=== PATIENT | male | born 1995 | race Caucasian/White ===

== ENCOUNTER 2024-01-29 17:51 | Inpatient (IN) | payer MEDICAID, OTHER ==
--- NOTE | 2024-01-29 19:42 | ED ---
General Adult HPI - General Chief complaint: Psychiatric Symptoms Stated complaint: Petition Time Seen by Provider: 01/29/24 19:11 Source: patient Mode of arrival: ambulatory Limitations: no limitations - History of Present Illness Initial comments: 28-year-old male presenting to the ED with complaints of suicidal ideation. Patient reports earlier today was on a Zoom call with his counselor. Patient reports some increased anxiety and depression reports that he is having an existential crisis. Patient reports that while he was on the Zoom call with his counselor he reported that he knew how he was going to . Patient states that he was given from stress. Patient reports during the Zoom interview he waved around a "fake" gun and therefore was brought to this facility for further evaluation. Currently denies homicidal or suicidal ideations. Denies auditory or visual hallucinations. At this time denies medical complaints. No chest pain, shortness of breath, abdominal pain, nausea, vomiting, changes in bowel or bladder habits, fever, chills, cough, congestion, sore throat. No other complaints at this time. - Related Data Home Medications Medication Instructions Recorded Confirmed OLANZapine 5 mg PO HS 01/29/24 01/29/24 Venlafaxine HCl [Effexor XR] 150 mg PO DAILY 01/29/24 01/29/24 busPIRone HCl [Buspar] 20 mg PO BID 01/29/24 01/29/24 hydrOXYzine pamoate [Vistaril] 50 mg PO BID PRN 01/29/24 01/29/24 Allergies Allergy/AdvReac Type Severity Reaction Status Date / Time No Known Allergies Allergy Verified 01/29/24 20:31 Review of Systems ROS Statement: Those systems with pertinent positive or pertinent negative responses have been documented in the HPI. ROS Other: All systems not noted in ROS Statement are negative. Past Medical History Past Medical History: No Reported History History of Any Multi-Drug Resistant Organisms: None Reported Past Surgical History: No Surgical Hx Reported Past Psychological History: Depression Smoking Status: Never smoker Past Alcohol Use History: Rare Past Drug Use History: Marijuana General Exam Limitations: no limitations General appearance: alert, in no apparent distress Head exam: Present: atraumatic, normocephalic Eye exam: Present: normal appearance Neck exam: Present: normal inspection Respiratory exam: Present: normal lung sounds bilaterally Cardiovascular Exam: Present: regular rate, normal rhythm GI/Abdominal exam: Present: soft Neurological exam: Present: alert, oriented X3 Skin exam: Present: warm, dry Course Vital Signs 01/29/24 19:12 Temperature 98.3 F Pulse Rate 104 H Respiratory 18 Rate Blood Pressure 130/96 O2 Sat by Pulse 95 Oximetry Medical Decision Making - Medical Decision Making Was pt. sent in by a medical professional or institution (, PA, COUNTER HOP, urgent care, hospital, or alf...) When possible be specific @ -No Did you speak to anyone other than the patient for history (EMS, parent, family, police, friend...)? What history was obtained from this source @ -No Did you review nursing and triage notes (agree or disagree)? Why? @ -I reviewed and agree with nursing and triage notes Were old charts reviewed (outside hosp., previous admission, EMS record, old EKG, old radiological studies, urgent care reports/EKG's, alf records)? Report findings @ -No old charts were reviewed Differential Diagnosis (chest pain, altered mental status, abdominal pain women, abdominal pain men, vaginal bleeding, weakness, fever, dyspnea, syncope, headache, dizziness, GI bleed, back pain, seizure, CVA, palpatations, mental health, musculoskeletal)? @ -Differential Mental Health Depression, anxiety, bipolar, psychosis, schizophrenia, borderline personality, situational depression, adjustment disorder, behavioral disorder, brain tumor, malingering, substance abuse, encephalopathy, medication reaction, dementia, hypothyroidism, degenerative neurologic disorder, lupus.... This is not meant to be all-inclusive list EKG interpreted by me (3pts min.). @ -None X-rays interpreted by me (1pt min.). @ -None done CT interpreted by me (1pt min.). @ -None done U/S interpreted by me (1pt. min.). @ -None done What testing was considered but not performed or refused? (CT, X-rays, U/S, l abs)? Why? @ -None What meds were considered but not given or refused? Why? @ -None Did you discuss the management of the patient with other professionals (professionals i.e. , [facility], COUNTER HOP, lab, RT, psych nurse, rn social work, hammer operator, teacher, chief science officer, counter caser)? Give summary @ -Discussed the case with Sydnee LANDRY of EPS, patient will require inpatient admission. Was smoking cessation discussed for >3mins.? @ -No Was critical care preformed (if so, how long)? @ -No Were there social determinants of health that impacted care today? How? (Homelessness, low income, unemployed, alcoholism, drug addiction, transportation, low edu. Level, literacy, decrease access to med. care, [facility], rehab)? @ -No Was there de-escalation of care discussed even if they declined (Discuss DNR or withdrawal of care, Hospice)? DNR status @ -No What co-morbidities impacted this encounter? (DM, HTN, Smoking, COPD, CAD, Cancer, CVA, ARF, Chemo, Hep., AIDS, mental health diagnosis, sleep apnea, morbid obesity)? @ -Anxiety/Depression Was patient admitted / discharged? Hospital course, mention meds given and route, prescriptions, significant lab abnormalities, going to OR and other pertinent info. @ -Admission 28-year-old male presenting to the ED with complaints of increased anxiety, depression and suicidal ideation. After evaluation by psychiatry, feel patient needs inpatient admission. Patient will be admitted at this time. He has no medical complaints at this time. Undiagnosed new problem with uncertain prognosis? @ -No Drug Therapy requiring intensive monitoring for toxicity (Heparin, Nitro, Insulin, Cardizem)? @ -No Were any procedures done? @ -No Diagnosis/symptom? @ -Anxiety, depression, suicidal ideation Acute, or Chronic, or Acute on Chronic? @ -Acute Uncomplicated (without systemic symptoms) or Complicated (systemic symptoms)? @ -Uncomplicated Side effects of treatment? @ -No Exacerbation, Progression, or Severe Exacerbation? @ -No Poses a threat to life or bodily function? How? (Chest pain, [place], [place], pneumonia, PE, COPD, DKA, ARF, appy, cholecystitis, CVA, Diverticulitis, Homicidal, Suicidal, threat to staff... and all critical care pts) @ -Possibly - Lab Data Lab Results 01/29/24 01/30/24 Range/Units 19:46 00:03 Urine Opiates Screen Not Detected (NotDetected) Ur Oxycodone Screen Not Detected (NotDetected) Urine Methadone Screen Not Detected (NotDetected) Ur Barbiturates Screen Not Detected (NotDetected) U Tricyclic Antidepress Not Detected (NotDetected) Ur Phencyclidine Scrn Not Detected (NotDetected) Ur Amphetamines Screen Not Detected (NotDetected) U Methamphetamines Scrn Not Detected (NotDetected) U Benzodiazepines Scrn Not Detected (NotDetected) Urine Cocaine Screen Not Detected (NotDetected) U Marijuana (THC) Screen Not Detected (NotDetected) Influenza Type A (PCR) Not Detected (Not Detectd) Influenza Type B (PCR) Not Detected (Not Detectd) RSV (PCR) Not Detected (Not Detectd) SARS-CoV-2 (PCR) Not Detected (Not Detectd) Disposition Clinical Impression: Suicidal ideation Disposition: ADMITTED IP TO THIS HOSP Condition: Good Time of Disposition: 00:20
[2024-01-29 20:19] LABS: Amphetamine Screen,Urine Not Detected (NotDetected); Barbiturate Screen,Urine Not Detected (NotDetected); Benzodiazepines Screen,Urine Not Detected (NotDetected); Cocaine Screen,Urine Not Detected (NotDetected); Methadone Screen, Urine Not Detected (NotDetected); Opiate Screen,Urine Not Detected (NotDetected); Oxycodone Screen, Urine Not Detected (NotDetected); Phencyclidine Screen,Urine Not Detected (NotDetected); Tricyclic Antidepressant,Urine Not Detected (NotDetected); Urn Cannabinoid Scrn Not Detected (NotDetected)
[2024-01-30] MEDS ORDERED: MAGNESIUM HYDROXIDE 2,400 MG/30 ML CUP PO PRN (00:52)
[2024-01-30] MEDS ORDERED: ACETAMINOPHEN TAB 325 MG TAB PO PRN (00:52)
[2024-01-30] MEDS ORDERED: HALOPERIDOL LACTATE 5 MG/ML 1 ML VIAL IM PRN (00:52)
[2024-01-30] MEDS ORDERED: LORazepam 2 MG/ML INJ IM PRN (00:52)
[2024-01-30 03:50] LABS: Appearance,Urine Clear (Clear); Bilirubin,Urine Negative (Negative); Blood,Urine Negative (Negative); Color,Urine Yellow; Glucose,Urine (UA) Negative (Negative); Ketones,Urine Negative (Negative); Leukocyte Esterase,Urine Negative (Negative); Nitrite,Urine Negative (Negative); PH, Urine 5.5 (5.0-8.0); Protein,Urine Negative (Negative); Specific Gravity,Urine 1.026 (1.001-1.035); Urobilinogen,Urine <2.0 mg/dL (<2.0)
[2024-01-30] MEDS: LORazepam 1 MG TAB PO PRN (03:55)
[2024-01-30] MEDS: IBUPROFEN 600 MG TAB PO PRN (03:55)
[2024-01-30 07:56] LABS: Basophils % (A) 0 %; Eosinophils # (A) 0.1 k/uL (0-0.7); Eosinophils % (A) 1 %; HCT 48.8 % (39.0-53.0); HGB 16.2 gm/dL (13.0-17.5); Lymphocytes # (A) 2.4 k/uL (1.0-4.8); Lymphocytes % (A) 23 %; MCH 29.8 pg (25.0-35.0); MCHC 33.2 g/dL (31.0-37.0); MCV 89.8 fL (80.0-100.0); Mean Platelet Volume 7.3; Monocytes # (A) 0.4 k/uL (0-1.0); Monocytes % (A) 4 %; Neutrophils # (A) 7.7 k/uL (1.3-7.7); Neutrophils % (A) 71 %; Platelet Count 330 k/uL (150-450); RBC 5.44 m/uL (4.30-5.90); RDW 13.1 % (11.5-15.5); WBC 10.8 k/uL (3.8-10.6)
[2024-01-30 08:29] LABS: ALT 30 U/L (4-49); AST 46 U/L (17-59); African American GFR (CKD) >90 (>60 ml/min/1.73 sqM); Albumin 4.5 g/dL (3.5-5.0); Alkaline Phosphatase 85 U/L (38-126); Anion Gap 11 mmol/L; Bilirubin, Delta 0.3 mg/dL (0.0-0.2); Bilirubin,Unconjugated 0.6 mg/dL (0.0-1.1); Blood Urea Nitrogen 11 mg/dL (9-20); Carbon Dioxide 25 mmol/L (22-30); Chloride 106 mmol/L (98-107); Glucose 102 mg/dL (74-99); Non-African American GFR(CKD) >90 (>60 ml/min/1.73 sqM); Potassium 4.3 mmol/L (3.5-5.1); Sodium 142 mmol/L (137-145); Total Bilirubin 0.9 mg/dL (0.2-1.3); Total Protein 8.1 g/dL (6.3-8.2)
[2024-01-30] MEDS: NICOTINE 14MG/24HR PATCH TRANSDERM SCH (08:59)
[2024-01-30] MEDS: VENLAFAXINE HCL ER 150 MG CAP PO SCH (08:59)
[2024-01-30] MEDS: busPIRone HCl 10 MG TAB PO SCH (08:59)
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
--- NOTE | 2024-01-30 14:58 | P.CONS ---
History of Present Illness - Reason for Consult Consult date: 01/30/24 medical H and P Requesting physician: Claus Willson - History of Present Illness This is a pleasant 28-year-old male with no significant medical history. He presents to the ER sent in by his psychiatrist at [facility] due to suicidal ideation and. Patient was having reports of increased anxiety and depression on the Zoom call with his counselor states that he was going to from stress was waving around a "fake" gun and therefore was brought to this facility for further evaluation. Patient states that he has good outside support he lives with his fiance and works as a medical translator. He is currently denying any suicidal ideation at the time of my assessment. He has no complai nts of shortness of breath no chest discomfort no nausea vomiting or diarrhea no dizziness or lightheadedness. He does report being started on weekly vitamin D supplementation by his PCP Dr. Rodriguez, upon review of the medical department prescribed back in September for a total of 12 weeks and patient should have finished this prescription in November. He is evaluated today on the mental health unit. REVIEW OF SYSTEMS: CONSTITUTIONAL: No fever, no malaise, no fatigue. HEENT: No recent visual problems or hearing problems. Denied any sore throat. CARDIOVASCULAR: No chest pain, orthopnea, PND, no palpitations, no syncope. PULMONARY: No shortness of breath, no cough, no hemoptysis. GASTROINTESTINAL: No diarrhea, no nausea, no vomiting, no abdominal pain. NEUROLOGICAL: No headaches, no weakness, no numbness. HEMATOLOGICAL: Denies any bleeding or petechiae. GENITOURINARY: Denies any burning micturition, frequency, or urgency. MUSCULOSKELETAL/RHEUMATOLOGICAL: Denies any joint pain, swelling, or any muscle pain. ENDOCRINE: Denies any polyuria or polydipsia. The rest of the 14-point review of systems is negative. PHYSICAL EXAMINATION: GENERAL: The patient is alert and oriented x3, not in any acute distress. Well developed, well nourished. HEENT: Pupils are round and equally reacting to light. EOMI. No scleral icterus. No conjunctival pallor. Normocephalic, atraumatic. No pharyngeal erythema. No thyromegaly. CARDIOVASCULAR: S1 and S2 present. No murmurs, rubs, or gallops. PULMONARY: Chest is clear to auscultation, no wheezing or crackles. ABDOMEN: Soft, nontender, nondistended, normoactive bowel sounds. No palpable organomegaly. MUSCULOSKELETAL: No joint swelling or deformity. EXTREMITIES: No cyanosis, clubbing, or pedal edema. NEUROLOGICAL: Gross neurological examination did not reveal any focal deficits. SKIN: No rashes. Assessment and plan Anxiety/depression with concern for suicidal ideation patient is petitioned and admitted to the mental health unit for psychiatric evaluation and treatment Vitamin D deficiency completed course of treatment Obesity GI prophylaxis Full code Patient will be continued on medications per psychiatry. No need to continue vitamin D supplementation at this time as patient should have completed 12 weeks outpatient. Thank you For this consultation we will continue to follow along as needed The impression and plan of care has been dictated by Nettie Sullivan Nurse Practitioner as directed. Dr. Brenda MD I have performed a history and physical examination and medical decision making of this patient, discussed the same with the dictator, and agree with the dictators assessment and plan as written, documented as a scribe. Based on total visit time, I have performed more than 50% of this visit. Past Medical History Past Medical History: No Reported History History of Any Multi-Drug Resistant Organisms: None Reported Past Surgical History: No Surgical Hx Reported Past Anesthesia/Blood Transfusion Reactions: No Reported Reaction Smoking Status: Never smoker - Past Family History Father Family Medical History: Unable to Obtain Mother Family Medical History: Unable to Obtain Medications and Allergies Home Medications Medication Instructions Recorded Confirmed Type OLANZapine 5 mg PO HS 01/29/24 01/29/24 History Venlafaxine HCl [Effexor XR] 150 mg PO DAILY 01/29/24 01/29/24 History busPIRone HCl [Buspar] 20 mg PO BID 01/29/24 01/29/24 History hydrOXYzine pamoate [Vistaril] 50 mg PO BID PRN 01/29/24 01/29/24 History Allergies Allergy/AdvReac Type Severity Reaction Status Date / Time No Known Allergies Allergy Verified 01/29/24 20:31 Physical Exam Vitals: Vital Signs Temp Pulse Pulse Resp BP BP Pulse Ox 01/30/24 01:45 97.9 F 98 18 134/78 97 01/29/24 19:12 98.3 F 104 H 18 130/96 95 Intake and Output 03/06/1601/30/24 01/30/24 22:59 06:59 14:59 Other: Weight 104.326 kg 103.589 kg Results CBC & Chem 7: 01/30/24 07:44 01/30/24 07:44 Labs: Abnormal Lab Results - Last 24 Hours (Table) 01/30/24 01/30/24 Range/Units 07:44 07:44 WBC 10.8 H (3.8-10.6) k/uL Glucose 102 H (74-99) mg/dL Delta Bilirubin 0.3 H (0.0-0.2) mg/dL Assessment and Plan Time with Patient: Less than 30
[2024-01-30] MEDS: hydrOXYzine pamoate 25 MG CAP PO PRN (15:47)
[2024-01-30 18:46] LABS: Chol/HDL Ratio 5.62 Ratio; LDL Cholesterol,Calculated 163.4 mg/dL (0.0-131.0)
[2024-01-30] MEDS: hydrOXYzine pamoate 25 MG CAP PO SCH (20:29)
[2024-01-30] MEDS: OLANZapine 5 MG TAB PO SCH (20:29)
[2024-01-31] MEDS: SERTRALINE 50 MG TAB PO SCH (08:37)
--- NOTE | 2024-01-31 09:56 | P.PN ---
Subjective Progress Note Date: 01/31/24 Principal diagnosis: Diagnostic impression Mood disorder unspecified Anxiety disorder unspecified Personality disorder with borderline traits Patient Name: Mustapha Wing Date of : 89 Patient Status: Inpatient Attending Provider: Darin Cheng Date: 01/31/24 Subjective data: The patient reports that to staying in the hospital is actually made him worse and is not sure as to where to 80 should go Patient states that he has spent all his energy into making things better for himself and his family where he has chief 11 positives in his life where he is at a steady job has a pet animal has a fianc and has a better job Patient reports that he needs to do something different although he is unable to all the positives that is achieved Patient remains confused about his decision making Patient is not sure if he is trying to get attention. That he was waving the fake gun in front of the camera He admits that he feels confused about his behavior He denies any 72 any suicidal ideations or plans Mental status examination: Reveals a young male who currently appears in no acute physical distress Patient's speech was monotone Patient is alert and oriented to time place and person Affect was that of [id number] anxiety Thought processes are goal-directed sequential and logical although patient seemed to have difficulty concentrating and hip repeatedly asked to repeat the question Patient's responses also seemed to change few times and at times seem to be somewhat of an unreliable historian or minimizing issues Self-esteem and confidence appears to be low Formal and operational judgment and insight are impaired cognitively appears to be intact Diagnostic impression Mood disorder unspecified Anxiety disorder unspecified Personality disorder with borderline traits Plan: The patient will be asked presently on the unit for further evaluation and treatment Therapy will be focused on providing supportive care improving his coping abilities with a multimodal treatment Patient will also participate in on the gomes activities individual milieu group OT RT PT and pharmacotherapy Approximately the stay would be 7-10 days Patient reveals that he is taking the Effexor which has been started and that he takes 150 mg a day which she had admitted from mentioning the previous day We'll discontinue the Zoloft and increase the Effexor to 225 mg daily Continue supportive care discussed effects and side effects We will also continue buspirone 20 mg twice a day as prescribed And Vistaril 25 mg twice a day as before Channing Taz M.D. Objective - Vital Signs Vital signs: Vital Signs Temp 97.9 F 01/30/24 01:45 Pulse 98 01/30/24 01:45 Resp 18 01/30/24 01:45 BP 134/78 01/30/24 01:45 Pulse Ox 97 01/30/24 01:45 FiO2 - Labs CBC & Chem 7: 01/30/24 07:44 01/30/24 07:44 Labs: Abnormal Lab Results - Last 24 Hours (Table) 01/30/24 Range/Units 07:44 Cholesterol 219.00 H (0.00-200.00) mg/dL LDL Cholesterol, Calc 163.4 H (0.0-131.0) mg/dL HDL Cholesterol 39.00 L (40.00-60.00) mg/dL
[2024-01-31] MEDS: MAG HYDROX/AL HYDROX/SIMETH 355 ML BOTTLE PO PRN (23:06)
[2024-02-01] MEDS: VENLAFAXINE HCL ER 75 MG CAP PO SCH (08:38)
--- NOTE | 2024-02-01 10:41 | P.PN ---
Subjective Progress Note Date: 02/01/24 Principal diagnosis: Diagnostic impression Mood disorder unspecified Anxiety disorder unspecified Personality disorder with borderline traits Patient Name: Mustapha Wing Date of : 89 Patient Status: Inpatient Attending Provider: Darin Cheng Date: 02/01/24 Subjective data: Patient reports that he feels worse about being in the hospital He says that however is trying to maintain a positive attitude He admits that he was told that his Effexor was going to be increased He denies any suicidal ideations or plans and states that he was all misconstrued Patient however then agreed that he did admit before but his depression and anxiety with getting really worse before he came in the hospital Patient gives some mixed information in a double bind messages Patient agrees to have her gabapentin added to the regimen for anxiety Discussed effects and side effects Mental status examination: Reveals a young male who currently appears in no acute physical distress Patient's speech was monotone Patient is alert and oriented to time place and person Affect was that of [id number] anxiety Thought processes are goal-directed sequential and logical although patient seemed to have difficulty concentrating and hip repeatedly asked to repeat the question Patient's responses also seemed to change few times and at times seem to be somewhat of an unreliable historian or minimizing issues Self-esteem and confidence appears to be low Formal and operational judgment and insight are impaired cognitively appears to be intact Diagnostic impression Mood disorder unspecified Anxiety disorder unspecified Personality disorder with borderline traits Plan: The patient will be asked presently on the unit for further evaluation and treatment Therapy will be focused on providing supportive care improving his coping abilities with a multimodal treatment Patient will also participate in on the gomes activities individual milieu group OT RT PT and pharmacotherapy Approximately the stay would be 7-10 days Patient reveals that he is taking the Effexor which has been started and that he takes 150 mg a day which she had admitted from mentioning the previous day discontinue the Zoloft and increase the Effexor to 225 mg daily Add gabapentin 100 mg 3 times a day Discussed effects and side effects Continue supportive care discussed effects and side effects We will also continue buspirone 20 mg twice a day as prescribed And Vistaril 25 mg twice a day as before Channing Mcghee M.D. Objective - Vital Signs Vital signs: Vital Signs Temp 98.2 F 02/01/24 06:58 Pulse 105 H 02/01/24 06:58 Resp 18 02/01/24 06:58 BP 148/97 02/01/24 06:58 Pulse Ox 99 02/01/24 06:58 FiO2 - Labs CBC & Chem 7: 01/30/24 07:44 01/30/24 07:44
[2024-02-01] MEDS: GABAPENTIN 100 MG CAP PO SCH (16:22)
--- NOTE | 2024-02-02 09:19 | P.PN ---
Subjective Progress Note Date: 02/02/24 Principal diagnosis: Diagnostic impression Mood disorder unspecified Anxiety disorder unspecified Personality disorder with borderline traits Patient Name: Mustapha Wing Date of : [birth year] Patient Status: Inpatient Attending Provider: Darin Cheng Date: 02/02/24 Subjective data: The patient reports that as much as he is upset about being in the hospital he started to accept He admits that he is at some help and that things were escalating at home before his hospitalization Patient reports that the gabapentin does seem to help with his anxiety Patient did not acknowledge or protest his behavior in front of the therapist that he was holding a fake gun and had mentioned about by copping machine operator Patient still remains somewhat evasive and defensive and superficial Mental status examination: Reveals a young male who currently appears in no acute physical distress Patient's speech was monotone Patient is alert and oriented to time place and person Affect was that of [id number] anxiety Thought processes are goal-directed sequential and logical although patient seemed to have difficulty concentrating and hip repeatedly asked to repeat the question Patient's responses also seemed to change few times and at times seem to be somewhat of an unreliable historian or minimizing issues Self-esteem and confidence appears to be low Formal and operational judgment and insight are impaired cognitively appears to be intact Diagnostic impression Mood disorder unspecified Anxiety disorder unspecified Personality disorder with borderline traits Plan: The patient will be asked presently on the unit for further evaluation and treatment Therapy will be focused on providing supportive care improving his coping abilities with a multimodal treatment Patient will also participate in on the gomes activities individual milieu group OT RT PT and pharmacotherapy Approximately the stay would be 7-10 days Patient reveals that he is taking the Effexor which has been started and that he takes 150 mg a day which she had admitted from mentioning the previous day discontinue the Zoloft and increase the Effexor to 225 mg daily Add gabapentin 100 mg 3 times a day Discussed effects and side effects Continue supportive care discussed effects and side effects We will also continue buspirone 20 mg twice a day as prescribed And Vistaril 25 mg twice a day as before Channing Mcghee M.D. Objective - Vital Signs Vital signs: Vital Signs Temp 98.3 F 02/02/24 08:12 Pulse 101 H 02/02/24 08:12 Resp 16 02/02/24 08:12 BP 133/81 02/02/24 08:12 Pulse Ox 97 02/02/24 08:12 FiO2 Intake & Output 02/01/24 02/02/24 02/02/24 18:59 06:59 18:59 Weight 102.5 kg - Labs CBC & Chem 7: 01/30/24 07:44 01/30/24 07:44
[2024-02-02] MEDS: haloperidoL 5 MG TAB PO PRN (12:15)
[2024-02-02] MEDS: traZODone HCL 50 MG TAB PO PRN (21:50)
--- NOTE | 2024-02-03 10:08 | P.PN ---
Subjective Progress Note Date: 02/03/24 Principal diagnosis: Diagnostic impression Mood disorder unspecified Anxiety disorder unspecified Personality disorder with borderline traits Patient Name: Mustapha Wing Date of : [birth year] Patient Status: Inpatient Attending Provider: Darin Cheng Date: 02/03/24 Subjective data: The patient reports that as much as he is upset about being in the hospital he started to accept The patient reports that he is feeling a lot better he says that his thinking was more positively and feels that he is making progress in taking care of his responsibilities as well as that his anxietybetter He states that he does not need the trazodone at nighttime He says that he is going to make some positive changes after he is released from the hospital and will focus on no working with his therapist on anxiety resolution and problem-solving skills Mental status examination: Reveals a young male who currently appears in no acute physical distress Patient's speech was monotone Patient is alert and oriented to time place and person Affect was flat Thought processes are goal-directed sequential and logical although patient seemed to have difficulty concentrating and hip repeatedly asked to repeat the question Patient's responses also seemed to change few times and at times seem to be somewhat of an unreliable historian or minimizing issues Self-esteem and confidence appears to be improving Formal and operational judgment and insight are impaired cognitively appears to be intact Diagnostic impression Mood disorder unspecified Anxiety disorder unspecified Personality disorder with borderline traits Plan: The patient will be asked presently on the unit for further evaluation and treatment Therapy will be focused on providing supportive care improving his coping abilities with a multimodal treatment Patient will also participate in on the gomes activities individual milieu group OT RT PT and pharmacotherapy Approximately the stay would be 7-10 days Patient reveals that he is taking the Effexor which has been started and that he takes 150 mg a day which she had admitted from mentioning the previous day discontinue the Zoloft and increase the Effexor to 225 mg daily Add gabapentin 100 mg 3 times a day Discussed effects and side effects Continue supportive care discussed effects and side effects We will also continue buspirone 20 mg twice a day as prescribed And Vistaril 25 mg twice a day as before Patient started to show some progress but has limited insight about his histrionic behavior Tentative discharge in 2-4 days Channing Tza Castro Objective - Vital Signs Vital signs: Vital Signs Temp 97.9 F 02/03/24 05:36 Pulse 96 02/03/24 05:36 Resp 16 02/03/24 05:36 BP 129/74 02/03/24 05:36 Pulse Ox 97 02/02/24 08:12 FiO2 - Labs CBC & Chem 7: 01/30/24 07:44 01/30/24 07:44
[2024-02-04 08:12] VITALS: RESP 18; TEMP 98.1
--- NOTE | 2024-02-04 12:14 | P.PN ---
Progress Note - Text Progress Note Date: 02/04/24 Interval History: Patient was seen wandering the hallways and was directable and agreeable to sp sumi with creative writer in the office. Patient states that he is starting to feel hopeful and optimistic. He feels that he has "got that light back" He states he feels betrayed by his counselor. That he feels she should have handled the situation differently. Java Developer With Security Clearance explained to the patient that sometimes it is a life and situation, and that decisions have to be made by the information at the time. Patient understood. At this time patient denies any suicidal or homical ideations, intent or plan. Patient denies any auditory, visual hallucinations and denies any paranoia or delusions. Patient denies any side effects from the medications and has been compliant with meds. Mental Status Exam: General Appearance: Patient appears to be stated age is alert, directable, and cooperative. Behavior: Patient is calmly seated without any agitated behavior. Speech: Patient's speech is fluent and nonpressured. Mood/Affect: Mood is improving mildly, affect is congruent and constricted. Suicidality/Homicidality: Patient denies having any suicidal or homicidal ideation intent or plan. Perceptions: Patient denies any visual hallucinations and denies any auditory hallucinations Though content/process: There is no evidence of any delusional thought content and thought process is linear and goal-directed. Memory and concentration: AOX3, grossly intact for the purposes of this session Judgment and insight: Improving mildly Assessment: Mood disorder unspecified Anxiety disorder unspecified Personality disorder with borderline traits Plan: -Patient continues to meet criteria for inpatient psychiatric admission for symptom stabilization and safety. Patient has signed adult voluntary form and medication consent and was placed in patient's chart. -Medications: Continue with Effexor 225 mg daily d/c gabapentin, increase buspirone 30 mg twice a day, change Vistaril 25 mg daily, plus visteril prn, Zyprexa 5mg po qhs -When necessary Ativan and Haldol for agitation/aggression. -NRT -nicotine patch -SW on board for discharge planning. Encouraged the patient to participate in milieu. Possibly discharge tomorrow, if patient continues to do well.
[2024-02-04] MEDS: busPIRone HCl 10 MG TAB PO SCH (20:04)
[2024-02-05 07:05] VITALS: BP 143/80; PULSE 105
[2024-02-05] MEDS: hydrOXYzine pamoate 25 MG CAP PO SCH (08:02)
--- NOTE | 2024-02-05 10:31 | P.DS ---
Providers Date of admission: 01/30/24 00:50 Expected date of discharge: 02/05/24 Attending physician: Darin Cheng MD Consults: 01/30/24 00:52 Consult Physician [facility]ine [facility] Reason/Comments: medical H&P Do you want consulting provider notified?: Yes, Notify in am Primary care physician: Candido Rodriguze - Discharge Diagnosis(es) (1) Unspecified episodic mood disorder Current Visit: Yes Status: Acute Priority: High (2) Anxiety disorder Current Visit: Yes Status: Acute Priority: Medium (3) Personality disorder Current Visit: Yes Status: Acute Priority: Medium Hospital Course: Admission HPI: Admission note was completed by Dr Mcghee "Serge is a 28-year-old male who was seen for a psychiatric assessment after hospitalization and her unit Patient presents with suicidal ideations which she states was misconstrued He says that he was seen a therapist at [facility] and had told him that he had not disposed of his fate, He says that he keeps it around her protection and safety He states that he also was asked as to how he would and states that that he had to do to them that it would be by type copyist Patient's story continues to change multiple times. Following is an accountant systems for the assessment that in the ER which is included here for comparison: male presenting to the ED with complaints of suicidal ideation. Patient reports earlier today was on a Zoom call with his counselor. Patient reports some increased anxiety and depression reports that he is having an existential crisis. Patient reports that while he was on the Zoom call with his counselor he reported that he knew how he was going to . Patient states that he was given from stress. Patient reports during the Zoom interview he waved around a "fake" gun and therefore was brought to this facility for further evaluation. Currently denies homicidal or suicidal ideations. Denies auditory or visual hallucinations. At this time denies medical complaints. No chest pain, shortness of breath, abdominal pain, nausea, vomiting, changes in bowel or bladder habits, fever, chills, cough, congestion, sore throat. No other complaints at this time." Hospital course: Upon admission to the unit patient was directable and agreeable to commence treatment and signed adult voluntary form. Patient got along well with other patients on the unit and followed unit protocol. Patient was compliant with the medications and denied any side effects throughout hospital course. Patient was started on Effexor and increased to a dose of 225 mg daily for mood/anxiety, BuSpar was increased to dose of 30 mg twice daily for anxiety, Vistaril 25 mg daily scheduled +50 mg twice daily as needed for anxiety. Continued with home dose of Zyprexa 5 mg nightly for mood stabilization/insomnia.. Patient spoke of his stressors and engaged in therapy both group and individual. Patient was also seen by medical team for history and physical exam. Throughout the course of the hospitalization patient gradually improved with regards to mood, anxiety, sleep and returned back to their baseline level of functioning. On the day of discharge patient denied any suicidal or homicidal ideations intent or plan denied any auditory or visual hallucinations. Patient endorsed wanting to live for his health and family. The patient denied any access to guns or weapons. Patient denied any paranoia and did not endorse any delusions. Patient does not have a significant history of substance abuse and was counseled on abstaining from all substances including alcohol and marijuana. Patient was also counseled on the medications and need for regular compliance and was encouraged to follow-up with their outpatient appointment for mental health and also for primary care. Prior to discharge a family meeting will be arranged by social services analyst to answer any questions and ensure safety upon discharge. section gang worker to ensure that there are no guns and weapons in the house. Patient will be following up at [facility] for outpatient mental health follow-up. Mental status exam: General Appearance: Patient appears to be mildly overweight, stated age is alert, pleasant, and cooperative. Patient is in no acute distress and has improved hygiene and grooming Behavior: Patient is calmly seated without any agitated behavior. Speech: Patient's speech is fluent and nonpressured. Mood/Affect: Patient reports their mood is "better", affect is congruent and euthymic. Suicidality/Homicidality: Patient denies having any suicidal or homicidal ideation intent or plan. Perceptions: Patient denies any auditory or visual hallucinations. Though content/process: There is no evidence of any delusional thought content and thought process is linear and goal-directed. More future oriented Memory and concentration: AOX3, grossly intact for the purposes of this session. Can spell "WORLD" backwards correctly. Judgment and insight: improved with guarded prognosis Impression: Mood disorder unspecified Anxiety disorder unspecified Personality disorder unspecified Plan: -Continue with discharge today as patient has improved and stabilized psychiatrically and is not currently an imminent threat to himself and/or others. -Continue medications: Effexor XR 225 mg daily for mood/anxiety, BuSpar 30 mg twice daily for anxiety, Vistaril 25 mg daily scheduled +50 mg twice daily as needed for anxiety, Zyprexa 5 mg nightly for mood stabilization/insomnia. -Patient was counseled on the need for medication compliance and appropriate follow-up at mental health and also primary care for medical issues. Patient verbalized understanding and agreed. -Social work to arrange for and conduct family meeting to ensure safety upon discharge and answer any questions/concerns. Social work also to arrange for patients follow up appointments with [facility] for psychiatric care along with follow up with primary care provider. -Patient counseled on abstaining from recreational drugs and marijuana and alcohol. Was informed/educated on the adverse effects on their physical and mental health. Patient verbally agreed and understood. -Patient was instructed to return to the hospital or seek immediate medical care if their psychiatric or medical symptoms do worsen or reoccur. Allergies Allergy/AdvReac Type Severity Reaction Status Date / Time No Known Allergies Allergy Verified 01/29/24 20:31 Laboratory Results WBC 10.8 k/uL (3.8-10.6) H 01/30/24 07:44 RBC 5.44 m/uL (4.30-5.90) 01/30/24 07:44 Hgb 16.2 gm/dL (13.0-17.5) 01/30/24 07:44 Hct 48.8 % (39.0-53.0) 01/30/24 07:44 MCV 89.8 fL (80.0-100.0) 01/30/24 07:44 MCH 29.8 pg (25.0-35.0) 01/30/24 07:44 MCHC 33.2 g/dL (31.0-37.0) 01/30/24 07:44 RDW 13.1 % (11.5-15.5) 01/30/24 07:44 Plt Count 330 k/uL (150-450) 01/30/24 07:44 MPV 7.3 01/30/24 07:44 Neutrophils % 71 % 01/30/24 07:44 Lymphocytes % 23 % 01/30/24 07:44 Monocytes % 4 % 01/30/24 07:44 Eosinophils % 1 % 01/30/24 07:44 Basophils % 0 % 01/30/24 07:44 Neutrophils # 7.7 k/uL (1.3-7.7) 01/30/24 07:44 Lymphocytes # 2.4 k/uL (1.0-4.8) 01/30/24 07:44 Monocytes # 0.4 k/uL (0-1.0) 01/30/24 07:44 Eosinophils # 0.1 k/uL (0-0.7) 01/30/24 07:44 Basophils # 0.0 k/uL (0-0.2) 01/30/24 07:44 Sodium 142 mmol/L (137-145) 01/30/24 07:44 Potassium 4.3 mmol/L (3.5-5.1) 01/30/24 07:44 Chloride 106 mmol/L (98-107) 01/30/24 07:44 Carbon Dioxide 25 mmol/L (22-30) 01/30/24 07:44 Anion Gap 11 mmol/L 01/30/24 07:44 BUN 11 mg/dL (9-20) 01/30/24 07:44 Creatinine 1.07 mg/dL (0.66-1.25) 01/30/24 07:44 Est GFR (CKD-EPI)AfAm >90 (>60 ml/min/1.73 sqM) 01/30/24 07:44 Est GFR (CKD-EPI)NonAf >90 (>60 ml/min/1.73 sqM) 01/30/24 07:44 Glucose 102 mg/dL (74-99) H 01/30/24 07:[address] Glu mg/dL 105 mg/dL 01/30/24 07:44 Hemoglobin A1c 5.3 % (<=6.0) 01/30/24 07:44 Calcium 10.0 mg/dL (8.4-10.2) 01/30/24 07:44 Total Bilirubin 0.9 mg/dL (0.2-1.3) 01/30/24 07:44 Conjugated Bilirubin 0.0 mg/dL (0.0-0.3) 01/30/24 07:44 Unconjugated Bilirubin 0.6 mg/dL (0.0-1.1) 01/30/24 07:44 Delta Bilirubin 0.3 mg/dL (0.0-0.2) H 01/30/24 07:44 AST 46 U/L (17-59) 01/30/24 07:44 ALT 30 U/L (4-49) 01/30/24 07:44 Alkaline Phosphatase 85 U/L (38-126) 01/30/24 07:44 Total Protein 8.1 g/dL (6.3-8.2) 01/30/24 07:44 Albumin 4.5 g/dL (3.5-5.0) 01/30/24 07:44 Triglycerides 83.00 mg/dL (0.00-149.00) 01/30/24 07:44 Cholesterol 219.00 mg/dL (0.00-200.00) H 01/30/24 07:44 LDL Cholesterol, Calc 163.4 mg/dL (0.0-131.0) H 01/30/24 07:44 VLDL Cholesterol, Calc 16.60 mg/dL (5.00-40.00) 01/30/24 07:44 HDL Cholesterol 39.00 mg/dL (40.00-60.00) L 01/30/24 07:44 Cholesterol/HDL Ratio 5.62 Ratio 01/30/24 07:44 TSH 2.040 mIU/L (0.465-4.680) 01/30/24 07:44 Urine Color Yellow 01/30/24 01:00 Urine Appearance Clear (Clear) 01/30/24 01:00 Urine pH 5.5 (5.0-8.0) 01/30/24 01:00 Ur Specific [place] 1.026 (1.001-1.035) 01/30/24 01:00 Urine Protein Negative (Negative) 01/30/24 01:00 Urine Glucose (UA) Negative (Negative) 01/30/24 01:00 Urine Ketones Negative (Negative) 01/30/24 01:00 Urine Blood Negative (Negative) 01/30/24 01:00 Urine Nitrite Negative (Negative) 01/30/24 01:00 Urine Bilirubin Negative (Negative) 01/30/24 01:00 Urine Urobilinogen <2.0 mg/dL (<2.0) 01/30/24 01:00 Ur Leukocyte Esterase Negative (Negative) 01/30/24 01:00 Urine Opiates Screen Not Detected (NotDetected) 01/29/24 19:46 Ur Oxycodone Screen Not Detected (NotDetected) 01/29/24 19:46 Urine Methadone Screen Not Detected (NotDetected) 01/29/24 19:46 Ur Barbiturates Screen Not Detected (NotDetected) 01/29/24 19:46 U Tricyclic Antidepress Not Detected (NotDetected) 01/29/24 19:46 Ur Phencyclidine Scrn Not Detected (NotDetected) 01/29/24 19:46 Ur Amphetamines Screen Not Detected (NotDetected) 01/29/24 19:46 U Methamphetamines Scrn Not Detected (NotDetected) 01/29/24 19:46 U Benzodiazepines Scrn Not Detected (NotDetected) 01/29/24 19:46 Urine Cocaine Screen Not Detected (NotDetected) 01/29/24 19:46 U Marijuana (THC) Screen Not Detected (NotDetected) 01/29/24 19:46 Influenza Type A (PCR) Not Detected (Not Detectd) 01/30/24 00:03 Influenza Type B (PCR) Not Detected (Not Detectd) 01/30/24 00:03 RSV (PCR) Not Detected (Not Detectd) 01/30/24 00:03 SARS-CoV-2 (PCR) Not Detected (Not Detectd) 01/30/24 00:03 Vital Signs Temp 98.1 F 02/04/24 08:03 Pulse 105 H 02/05/24 06:47 Resp 18 02/04/24 08:03 BP 143/80 02/05/24 06:47 Pulse Ox 97 02/02/24 08:12 FiO2 Patient Condition at Discharge: Stable Plan - Discharge Summary Discharge Rx Participant: Yes New Discharge Prescriptions: New Venlafaxine HCl [Effexor XR] 225 mg PO DAILY 30 Days #90 tab hydrOXYzine pamoate [Vistaril] 25 mg PO DAILY 30 Days #30 cap busPIRone HCL [Buspar] 30 mg PO BID 30 Days #60 tablet Continue OLANZapine 5 mg PO HS 30 Days #30 tab hydrOXYzine pamoate [Vistaril] 50 mg PO BID PRN 30 Days #60 cap PRN Reason: Anxiety Discontinued busPIRone HCl [Buspar] 20 mg PO BID Venlafaxine HCl [Effexor XR] 150 mg PO DAILY Discharge Medication List OLANZapine 5 mg PO HS 30 Days #30 tab 02/05/24 [Rx] Venlafaxine HCl [Effexor XR] 225 mg PO DAILY 30 Days #90 tab 02/05/24 [Rx] busPIRone HCL [Buspar] 30 mg PO BID 30 Days #60 tablet 02/05/24 [Rx] hydrOXYzine pamoate [Vistaril] 25 mg PO DAILY 30 Days #30 cap 02/05/24 [Rx] hydrOXYzine pamoate [Vistaril] 50 mg PO BID PRN 30 Days #60 cap 02/05/24 [Rx] Follow up Appointment(s)/Referral(s): [facility] [Outside] - 02/10/24 2:00 pm (02/09@ 2pm with Alisson Watt 02/15@ 1pm with Pietro Vaughan NP) Candido Rodriguez MD [Primary Care Provider] - 1-2 days Patient Instructions/Handouts: Depression (DC), Generalized Anxiety Disorder (ED), Borderline Personality Disorder (GEN) Activity/Diet/Wound Care/Special Instructions: Avoid the use of street drugs and alcohol. Take all medications as prescribed. When you are in need of refills on your medications, please contact your medical provider and/or outpatient psychiatrist/provider to have this done. Please go to your scheduled outpatient appointment for aftercare treatment. If symptoms return or become worse, call the crisis line at and/or go to the nearest emergency room for evaluation. National Suicide Hotline 988. Discharge Disposition: HOME SELF-CARE
== END 2024-02-05 11:13 | disposition home or self-care (01) | DRG 753 ==
LOC: EC 17:51 → 3MHU 01-30 00:50
PROVIDERS: ADMIT Psychiatry & Neurology Psychiatry; ATTEND Psychiatry & Neurology Psychiatry
DX: F39 Unspecified mood [affective] disorder (principal); F41.9 Anxiety disorder, unspecified; R45.851 Suicidal ideations; G47.00 Insomnia, unspecified; E55.9 Vitamin D deficiency, unspecified; F60.9 Personality disorder, unspecified; Z71.89 Other specified counseling; E66.9 Obesity, unspecified; Z68.33 Body mass index [BMI] 33.0-33.9, adult; Z28.21 Immunization not carried out because of patient refusal; Z11.52 Encounter for screening for COVID-19; Z79.899 Other long term (current) drug therapy
CPT/HCPCS: 80053; 80061; 80306; 81003; 82075; 82248; 83036; 84443; 85025; 87636; 99285

== ENCOUNTER 2024-09-15 17:02 | Emergency (ER) | payer OTHER ==
[2024-09-15 17:06] VITALS: RESP 16; TEMP 98.9
--- NOTE | 2024-09-15 19:00 | ED ---
Psych HPI - General Chief Complaint: Psychiatric Symptoms Stated Complaint: mental health Time Seen by Provider: 09/15/24 17:05 Source: patient, EMS Mode of arrival: EMS - History of Present Illness Initial Comments: 29-year-old male brought into the emergency department from [facility]. He was talking to his therapist today. He made mention that he wanted to hurt himself and was transferred to the hospital for evaluation of suicidal ideations. Patient denies wanting to . Denies suicidal ideations. Admits that he wants to harm himself because he is upset with himself. Reports that they took his comments out of context. He has been following with his counselor. He has been taking his medications as directed. Patient has concerns that there may be some missing mental health diagnosis. He denies homicidal ideations. No drug or alcohol use. No other alleviating, precipitating or modifying factors - Related Data Home Medications Medication Instructions Recorded Confirmed [place] Carbonate ER [Lithobid] 450 mg PO HS 09/15/24 09/15/24 Venlafaxine HCl [Effexor XR] 225 mg PO DAILY 09/15/24 09/15/24 clonazePAM [KlonoPIN] 0.5 mg PO BID PRN 09/15/24 09/15/24 Previous Rx's Medication Instructions Recorded OLANZapine 5 mg PO HS 30 Days #30 tab 02/05/24 busPIRone HCL [Buspar] 30 mg PO BID 30 Days #60 tablet 02/05/24 Allergies Allergy/AdvReac Type Severity Reaction Status Date / Time adhesive Allergy Rash/Hives Verified 09/15/24 18:30 Review of Systems ROS Statement: Those systems with pertinent positive or pertinent negative responses have been documented in the HPI. ROS Other: All systems not noted in ROS Statement are negative. Past Medical History Past Medical History: No Reported History History of Any Multi-Drug Resistant Organisms: None Reported Past Surgical History: No Surgical Hx Reported Past Anesthesia/Blood Transfusion Reactions: No Reported Reaction Past Psychological History: Anxiety, Depression Smoking Status: Never smoker - Past Family History Father Family Medical History: Unable to Obtain Mother Family Medical History: Unable to Obtain General Exam General appearance: alert, in no apparent distress Head exam: Present: atraumatic, normocephalic, normal inspection Eye exam: Present: normal appearance, PERRL, EOMI. Absent: scleral icterus, conjunctival injection, periorbital swelling ENT exam: Present: normal exam, mucous membranes moist Neck exam: Present: normal inspection. Absent: tenderness, meningismus, lymphadenopathy Respiratory exam: Present: normal lung sounds bilaterally. Absent: respiratory distress, wheezes, rales, rhonchi, stridor Cardiovascular Exam: Present: regular rate, normal rhythm, normal heart sounds. Absent: systolic murmur, diastolic murmur, rubs, gallop, clicks GI/Abdominal exam: Present: soft, normal bowel sounds. Absent: distended, tenderness, guarding, rebound, rigid Extremities exam: Present: normal inspection, full ROM, normal capillary refill. Absent: tenderness, pedal edema, joint swelling, calf tenderness Back exam: Present: normal inspection Neurological exam: Present: alert, oriented X3, CN II-XII intact Psychiatric exam: Present: normal affect, normal mood Skin exam: Present: warm, dry, intact, normal color. Absent: rash Course Vital Signs 09/15/24 09/15/24 17:04 20:27 Temperature 98.9 F Pulse Rate 83 93 Respiratory 16 16 Rate Blood Pressure 146/97 150/93 O2 Sat by Pulse 98 95 Oximetry Medical Decision Making - Medical Decision Making Was pt. sent in by a medical professional or institution (, PA, HEAD ORTHOPEDIC TEAM PHYSICIAN, urgent care, hospital, or long term...) When possible be specific @ -No Did you speak to anyone other than the patient for history (EMS, parent, family, police, friend...)? What history was obtained from this source @ -Spoke with EMS for history Did you review nursing and triage notes (agree or disagree)? Why? @ -I reviewed and agree with nursing and triage notes Were old charts reviewed (outside hosp., previous admission, EMS record, old EKG, old radiological studies, urgent care reports/EKG's, long term records)? Report findings @ -No old charts were reviewed Differential Diagnosis (chest pain, altered mental status, abdominal pain women, abdominal pain men, vaginal bleeding, weakness, fever, dyspnea, syncope, headache, dizziness, GI bleed, back pain, seizure, CVA, palpatations, mental health, musculoskeletal)? @Differential Mental Health Depression, anxiety, bipolar, psychosis, schizophrenia, borderline personality, situational depression, adjustment disorder, behavioral disorder, brain tumor, malingering, substance abuse, encephalopathy, medication reaction, dementia, hypothyroidism, degenerative neurologic disorder, lupus.... This is not meant to be all-inclusive list EKG interpreted by me (3pts min.). @ -Not done X-rays interpreted by me (1pt min.). @ -None done CT interpreted by me (1pt min.). @ -None done U/S interpreted by me (1pt. min.). @ -None done What testing was considered but not performed or refused? (CT, X-rays, U/S, labs)? Why? @ -None What meds were considered but not given or refused? Why? @ -None Did you discuss the management of the patient with other professionals (professionals i.e. , PA, HEAD ORTHOPEDIC TEAM PHYSICIAN, lab, RT, psych nurse, executive secretary social welfare, road marker, teacher, juvenile justice officer, social work case manager)? Give summary @ -Spoke with EPS who does evaluate the patient Was smoking cessation discussed for >3mins.? @ -No Was critical care preformed (if so, how long)? @ -No Were there social determinants of health that impacted care today? How? (Homelessness, low income, unemployed, alcoholism, drug addiction, transportation, low edu. Level, literacy, decrease access to med. care, long-term, rehab)? @ -No Was there de-escalation of care discussed even if they declined (Discuss DNR or withdrawal of care, Hospice)? DNR status @ -No What co-morbidities impacted this encounter? (DM, HTN, Smoking, COPD, CAD, Cancer, CVA, ARF, Chemo, Hep., AIDS, mental health diagnosis, sleep apnea, morbid obesity)? @ -Depression anxiety Was patient admitted / discharged? Hospital course, mention meds given and route, prescriptions, significant lab abnormalities, going to OR and other pertinent info. @ -Upon arrival patient seen and evaluated in room 11. Thorough history and physical exam was performed. Patient is medically cleared. EPS has evaluated the patient. Does not meet criteria for admission which I do agree with. Safety plan is filled out. Patient eager to go home. Recommended that he return to the emergency department should he have any worsening symptoms Undiagnosed new problem with uncertain prognosis? @ -No Drug Therapy requiring intensive monitoring for toxicity (Heparin, Nitro, Insulin, Cardizem)? @ -No Were any procedures done? @ -No Diagnosis/symptom? @ -Chronic depression Acute, or Chronic, or Acute on Chronic? @ -Acute on chronic Uncomplicated (without systemic symptoms) or Complicated (systemic symptoms)? @ -Complicated Side effects of treatment? @ -No Exacerbation, Progression, or Severe Exacerbation? @ -No Poses a threat to life or bodily function? How? (Chest pain, [place], [place], pneumonia, PE, COPD, DKA, ARF, appy, cholecystitis, CVA, Diverticulitis, Homicidal, Suicidal, threat to staff... and all critical care pts) @ -No - Lab Data Lab Results 09/15/24 Range/Units 17:39 Urine Color Light Yellow Urine Appearance Clear (Clear) Urine pH 6.5 (5.0-8.0) Ur Specific [place] 1.023 (1.001-1.035) Urine Protein Negative (Negative) Urine Glucose (UA) Negative (Negative) Urine Ketones Negative (Negative) Urine Blood Negative (Negative) Urine Nitrite Negative (Negative) Urine Bilirubin Negative (Negative) Urine Urobilinogen <2.0 (<2.0) mg/dL Ur Leukocyte Esterase Negative (Negative) Urine Opiates Screen Not Detected (NotDetected) Ur Oxycodone Screen Not Detected (NotDetected) Urine Methadone Screen Not Detected (NotDetected) Ur Barbiturates Screen Not Detected (NotDetected) U Tricyclic Antidepress Not Detected (NotDetected) Ur Phencyclidine Scrn Not Detected (NotDetected) Ur Amphetamines Screen Not Detected (NotDetected) U Methamphetamines Scrn Not Detected (NotDetected) U Benzodiazepines Scrn Not Detected (NotDetected) Urine Cocaine Screen Not Detected (NotDetected) U Marijuana (THC) Screen Not Detected (NotDetected) Disposition Clinical Impression: Depression Disposition: HOME SELF-CARE Condition: Stable Instructions (If sedation given, give patient instructions): Depression (ED) Is patient prescribed a controlled substance at d/c from ED?: No Referrals: Candido Rodriguez MD [Primary Care Provider] - 1-2 days Time of Disposition: 20:18
[2024-09-15 19:02] LABS: Amphetamine Screen,Urine Not Detected (NotDetected); Barbiturate Screen,Urine Not Detected (NotDetected); Benzodiazepines Screen,Urine Not Detected (NotDetected); Cocaine Screen,Urine Not Detected (NotDetected); Methadone Screen, Urine Not Detected (NotDetected); Opiate Screen,Urine Not Detected (NotDetected); Oxycodone Screen, Urine Not Detected (NotDetected); Phencyclidine Screen,Urine Not Detected (NotDetected); Tricyclic Antidepressant,Urine Not Detected (NotDetected); Urn Cannabinoid Scrn Not Detected (NotDetected)
[2024-09-15 20:17] LABS: Appearance,Urine Clear (Clear); Bilirubin,Urine Negative (Negative); Blood,Urine Negative (Negative); Color,Urine Light Yellow; Glucose,Urine (UA) Negative (Negative); Ketones,Urine Negative (Negative); Leukocyte Esterase,Urine Negative (Negative); Nitrite,Urine Negative (Negative); PH, Urine 6.5 (5.0-8.0); Protein,Urine Negative (Negative); Specific Gravity,Urine 1.023 (1.001-1.035); Urobilinogen,Urine <2.0 mg/dL (<2.0)
[2024-09-15 20:29] VITALS: BP 150/93; PULSE 93
== END 2024-09-15 20:29 | disposition home or self-care (01) ==
LOC: EC 17:02
CPT/HCPCS: 80306; 81003; 82075; 99285